=== PATIENT | female | born 1965 | race Caucasian/White ===

== ENCOUNTER 2016-04-30 13:11 | Inpatient (IN) | payer BC ==
--- NOTE | ~2016-04-30 | CN ---
Consultation Report [facility] [address] [place]. [address] NAME: CAPRICE LAKHANI : 65 STATUS : ADM IN PAT#: [id number] AGE: 50 ADM/REG DATE : 04/30/16 MR#: [id number] REPORT SERV DATE: 05/01/16 DICTATED BY: JACOB NAJERA DATE: 05/01/16 REPORT STATUS : Draft TRANSCRIBED BY: MODL DATE: 05/01/16 CONSULTATION NOTE DATE OF CONSULTATION: 05/01/2016 CHIEF COMPLAINT: Dyspnea and cough. HISTORY OF PRESENT ILLNESS: Ms Caprice Lakhani is a 50-year-old white female with a past medical history significant for asthma, chronic bronchitis, CAD, and possible diffuse parenchymal lung disease, who presents to [facility]'s Emergency Room with complaints of worsening shortness of breath and cough of one to two weeks' duration. It should be noted that Ms Lakhani has not been hospitalized recently and has done fairly well as an outpatient. Ms Lakhani is followed in the outpatient clinic by Dr. Karig Arams. She has been seen in the past for her asthma, possible obstructive sleep apnea, and then more recently, over the question of interstitial lung disease. She is on a pulmonary regimen of albuterol and Advair of which she is compliant. The patient describes herself as a never smoker. She states that she has had previous polysomnography that does not demonstrate obstructive sleep apnea. She describes her exercise tolerance recently as being fairly good, being able to ambulate approximately half a block before experiencing any shortness of breath. Ms Lakhani does not provide an entirely clear timeline regarding recent pulmonary events. That being said, it appears that she was treated at [facility] over a year ago for a bilateral pneumonia. She describes being treated with antibiotics at this time. At some point afterwards, she underwent CT imaging of the chest which demonstrated fibrotic changes in the bases of her lungs. She was eventually referred to Dr. Merlos for open lung biopsy. In May of 2015, she did undergo open lung biopsy which demonstrated usual interstitial pneumonia consistent with idiopathic pulmonary fibrosis. Given the findings, she was started on Nintedanib. Unfortunately, she had associated GI intolerance to this medication and it was eventually discontinued. Given her relatively young age and her findings on pathology, she was referred to [place] for further assessment. By the patient's report, the pathology reports were reviewed by the IPF team at [place] and she was told that she more than likely had a chronic bronchitis rather than a fibrotic process. Since that time, the patient has done reasonably well from a pulmonary standpoint. More recently, the patient has had worsening shortness of breath with associated productive cough and as such presented to [facility]'s emergency room. Upon arrival, she was found to be afebrile and normotensive with good oxygen saturation on supplemental oxygen. Initial blood work revealed a white blood cell count of 23,300. Arterial blood gas was obtained, which revealed a pH of 7.46, PaCO2 of 37, PaO2 of 65, and a bicarb of 26.1. Chest x-ray was obtained, which revealed an area of left basilar atelectasis and possible pleural fluid. She did receive some antibiotics and was placed on IV steroids. For the aforementioned reasons, she has been referred to the Pulmonary Service for further assessment. Consultation Report [address] [address] NAME: CAPRICE LAKHANI : 65 STATUS : ADM IN [facility]#: [id number] AGE: 50 ADM/REG DATE : 04/30/16 MR#: [id number] REPORT SERV DATE: 05/01/16 DICTATED BY: JACOB NAJERA DATE: 05/01/16 REPORT STATUS : Draft TRANSCRIBED BY: PEGGY DATE: 05/01/16 Currently, Ms Lakhani it is on 2 L of oxygen with appropriate oxygenation saturations. She does have a dry cough. She has had no recent purulent sputum by her report. She denies any overt wheezing in her chest. She has had no recent episodes of hemoptysis. She does carry a formal diagnosis of asthma. She currently denies any murmurs, angina, or palpitations. She denies any orthopnea or dependent edema. In regard to constitutional symptoms, she currently denies fever, chills, nausea, vomiting, chest pain, abdominal pain, or edema. PAST MEDICAL HISTORY: 1. Possible diffuse parenchymal lung disease. 2. Asthma. 3. Chronic bronchitis. 4. Dyslipidemia. PAST SURGICAL HISTORY: Open lung biopsy. FAMILY HISTORY: The patient denies family history of lung disease. 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 She denies any recent exposures to dust, silica, or asbestos. She has had no new or exotic pets in the home. TOBACCO/ALCOHOL: Again, the patient describes herself as a never smoker. She denies any recent alcohol or illicit drug use. REVIEW OF SYSTEMS: A complete review of systems was performed with pertinent positives and negatives are contained within the body of the HPI. PHYSICAL EXAMINATION: VITAL SIGNS: Blood pressure is 117/59, heart rate is 82, T-max is 98.2, respiratory rate is 17, and SpO2 is 94% on 2 L nasal cannula. GENERAL: The patient is a pleasant, well-nourished/well-developed female who is not currently exhibiting any signs of acute distress. SKIN: Skin with appropriate texture and turgor. No rashes, lesions, or ulcers. Nails are clear without cyanosis or clubbing. HEENT: HEAD: Skull is normocephalic/atraumatic. Facies symmetric. No masses or lesions. EYES: Sclera anicteric, conjunctiva pink without exudates. Extra ocular movements intact. Pupils are equal, round, reactive to light. EARS: Auricles and tragus without pain to palpation. Hearing is grossly intact. NOSE: Bilateral nasal patency. Sinuses without tenderness upon palpation. Consultation Report [address] [place]. [address] NAME: CAPRICE LAKHANI : 65 STATUS : ADM IN [facility]#: [id number] AGE: 50 ADM/REG DATE : 04/30/16 MR#: [id number] REPORT SERV DATE: 05/01/16 DICTATED BY: JACOB NAJERA DATE: 05/01/16 REPORT STATUS : Draft TRANSCRIBED BY: PEGGY DATE: 05/01/16 THROAT: Dentition. Lips, oral mucosa, tongue, palate, and pharynx pink and moist without lesions. Uvula rises equally on phonation. Tongue midline without deviation. NECK: Neck supple. Trachea midline. No cervical lymphadenopathy appreciated. THORAX/LUNGS: Thorax is symmetric with equal chest rise. Breath sounds audible through entire field. No rales, wheezes, rhonchi CARDIOVASCULAR: Regular rate and rhythm. No murmurs, rubs, or gallops. Anterior chest without thrills, heaves, or lifts. ABDOMEN: Soft. Non-distended, non-tender. Active bowel sounds in all four quadrants. No hepatosplenomegaly noted. PERIPHERAL VASCULAR: No edema. No varicosities, stasis changes, open sores, ulcerations, or phlebitis. 2+ pulses in radial and dorsalis pedis. MUSCULOSKELETAL: Full AROM and PROM in all joints. No evidence of erythema, deformity, or crepitus. NEUROLOGIC: CN II - XII grossly intact. Good muscle bulk and tone bilaterally. Strength 5/5 throughout. PSYCHIATRIC: The patient demonstrates good judgment and insight. Pt is A&O x 3. ACCESSORY DATA: Reveals a white blood cell count of 18,100. Procalcitonin is negative 0.36. C-reactive protein is elevated at 114.0. Arterial blood gas on room air reveals pH of 7.46, PaCO2 of 37, PaO2 of 65, bicarb of 26.1. Chest x-ray reveals some fibrotic changes in the bases. CT scan from March of 2016 reveals emphysematous changes in the superior portion of the lungs. There is a regular parenchymal consolidation at the posterior bases. IMPRESSION: 1. Acute hypoxemic respiratory failure. 2. Diffuse parenchymal lung disease of questionable etiology. 3. Chronic bronchitis. 4. History of asthma. PLAN: At this time, we will contact the patient's primary salt manager in an attempt to elucidate the chronicity of the patient's lung disease. We may obtain Vasculitis labs, given the patient's elevated CRP and sedimentation rate. It may be reasonable to obtain additional CT scanning of the chest. We do agree with IV steroids. Ultimately, we will attempt to obtain a level of 1 mg/kg, and follow her for clinical improvement. The aforementioned impression and plan has been discussed with Dr. Gordon, who will follow further recommendations. We thank you for this consult and look forward to participating in the care of Ms Caprice Lakhani. GBS/MODL Consultation Report [address] [place]. [address] NAME: CAPRICE LAKHANI : 65 STATUS : ADM IN [facility]#: [id number] AGE: 50 ADM/REG DATE : 04/30/16 MR#: [id number] REPORT SERV DATE: 05/01/16 DICTATED BY: JACOB NAJERA DATE: 05/01/16 REPORT STATUS : Draft TRANSCRIBED BY: PEGGY DATE: 05/01/16 Jacob Najera PA-C / [id number] CC: Eduin Paul M.D.
--- NOTE | ~2016-04-30 | DS ---
Discharge Summary [facility] [address] [place]. [address] NAME: SUSAN CASTANEDA : 65 STATUS : DIS IN PAT#: [id number] AGE: 50 ADM/REG DATE : 04/30/16 MR#: [id number] REPORT SERV DATE: 05/03/16 DICTATED BY: LEOBARDO CHESTER DATE: 05/02/16 REPORT STATUS : Draft TRANSCRIBED BY: MODMegan DATE: 05/02/16 ADMISSION DATE: 04/30/2016 DISCHARGE DATE: 05/02/2016 REASON FOR ADMISSION: This is a 50-year-old female that came in with shortness of breath, hypoxemia, and cough, failure to improve over 10 days of outpatient therapy. She has a history of interstitial lung disease, biopsy by Dr. Merlos last year, and had gone to [place], where they had told her she had chronic bronchitis and had been taking immunosuppressive agent, Ofev, and it was stopped in December. The patient is followed in the outpatient clinic by Dr. Kraig Armas, and after having a CT scan that had showed fibrotic trying to changes in her lung in May 2015, she had open lung biopsy which demonstrated interstitial pneumonia consistent with idiopathic pulmonary fibrosis and had been started on Nintedanib. She stopped it after having some GI intolerance to it. She went to [place] for further assessment and was reviewed by IPF Team and was told that she more than likely had chronic bronchitis rather than a fibrotic process, and since that time, had been doing reasonably well from a pulmonary standpoint until recently developing worsening shortness of breath associated with productive cough. DISCHARGE DIAGNOSES: 1. Nonspecific interstitial pneumonia. 2. Chronic bronchitis, asthma. 3. Hyperglycemia secondary to steroids. 4. Anxiety and depression. 5. Gastroesophageal reflux disease. 6. Insomnia. HOSPITAL COURSE: 1. Nonspecific interstitial pneumonia. The patient was admitted and started on IV methylprednisone and Pulmonary was consulted. The patient would have a CT scan of the chest which would show bibasilar ground-glass type opacities with relative sparing of peripheral lungs compatible with nonspecific interstitial pneumonia. Dr. Gordon saw the patient today and agreed with this assessment and felt the patient could be discharged to home as her shortness of breath had improved on the IV Solu-Medrol and he would send her home on oral prednisone and to follow up with outpatient with Dr. Kraig Armas with a CD of her CT imaging from here at the hospital. 2. Hyperglycemia secondary to steroids. The patient did have some hyperglycemia associated with steroids, however, blood sugar never got above 161 here at the hospital and that was while on IV steroids. With her A1cs last known to be 6.0, I do not feel that she needs to be on any blood sugar medication at this time, but will have her primary care follow this closely as she will be remaining on oral steroid and it is possible that she might need to start oral metformin in the future. DISCHARGE CONDITION: Stable. DISCHARGE MEDICATIONS: 1. Nexium one capsule daily. Discharge Summary [place] [id number] [facility] [place]. [address] NAME: SUSAN CASTANEDA : 65 STATUS : DIS IN PAT#: [id number] AGE: 50 ADM/REG DATE : 04/30/16 MR#: [id number] REPORT SERV DATE: 05/03/16 DICTATED BY: LEOBARDO CHESTER DATE: 05/02/16 REPORT STATUS : Draft TRANSCRIBED BY: PEGGY DATE: 05/02/16 2. Fluoxetine 20 mg p.o. b.i.d. 3. Buspirone 10 mg p.o. b.i.d. 4. Ambien 10 mg p.o. at bedtime. 5. Zocor 40 mg p.o. at bedtime. 6. Singulair 10 mg p.o. daily. 7. Albuterol 3 mL inhaled q.4 hours p.r.n. 8. Tylenol p.r.n. 9. Vitamin C one tablet p.o. daily. 10.Albuterol MDI two puffs p.r.n. 11.Prednisone 40 mg p.o. daily. DISCHARGE PLAN: The patient is discharged to home. Follow up with primary care in one to two weeks and Dr. Kraig Armas in two weeks and continue prednisone therapy at home. The patient already has home oxygen. She has been requiring 2 L here at the hospital. She although was checked at rest to be 93% on room air, the patient does have portable tanks and home O2 at home that she can use. ENRIQUE/PEGGY Leobardo Chester APN / [id number] CC: Eduin Paul M.D. Hisham F. Qutob, MD Daniel Smith, M.D.
--- NOTE | ~2016-04-30 | HP ---
History And Physical [address] [place]. [address] NAME: SUSAN CASTANEDA : 65 STATUS : ADM IN PAT#: [id number] AGE: 50 ADM/REG DATE : 04/30/16 MR#: [id number] REPORT SERV DATE: 04/30/16 DICTATED BY: DONELL LEWIS DATE: 04/30/16 REPORT STATUS : Draft TRANSCRIBED BY: MODL DATE: 04/30/16 DATE OF ADMISSION: 04/30/2016 EXAMINING PHYSICIAN: Donell Lewis M.D. REASON FOR ADMISSION: Shortness of breath, hypoxemia, and cough with failure to improve over ten days with outpatient therapy. HISTORY OF PRESENT ILLNESS: This is a 50-year-old white female, who has history of asthma. She also has a history of an interstitial lung disease, was biopsied here by Dr. Merlos last year. She went to [place] and they told her it was chronic bronchitis. She had been taking an immunosuppressive agent, Ofev, and it was stopped in December. She was taking 150 mg a day. She had increasing shortness of breath. Chest x-ray was done by Dr. Armas when she saw him about ten days ago. Augmentin was added and tapering dose of prednisone. The patient has failed to improve. She presents to the emergency with increasing shortness of breath and/or relative hypoxemia. Her arterial blood gases that were drawn on 21% FiO2 are 7.46/37/65, but with complaint of shortness of breath. She has a chest x-ray showing evidence of shallow inspiration with minimal left basal atelectasis and possible pleural fluid. She did have a right lung biopsy remotely. PAST MEDICAL HISTORY: She was hospitalized here with right lung biopsy by Dr. Merlos about a year ago. HOME MEDICATIONS: Include the following: Acetaminophen 500 mg p.o. q.6 hours p.r.n., ProAir two puffs every four hours p.r.n., albuterol q.4 hours as needed, Augmentin 875 p.o. b.i.d., Goody's Powder for headache p.r.n., BuSpar 10 mg p.o. b.i.d., fluoxetine 20 mg p.o. b.i.d., Singulair 10 mg p.o. at bedtime, prednisone tapering dose, simvastatin 40 mg p.o. daily, Nexium 40 mg daily, [id number] vitamin C, and Ambien 10 mg p.o. at bedtime scheduled. ALLERGIES: NONE ARE KNOWN. SOCIAL HISTORY: She has been two or three times. She lives in [place] now, does not attend restoration. She has never smoked cigarettes. She does not take any alcohol. She has had no toxic exposure. 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 The patient graduated from [employer]. FAMILY HISTORY: Mother of liver cancer. Father with diabetes. She has an aunt who lives in [place], who sees about her. She has one brother, who smokes cigarettes, has some lung disease from that. REVIEW OF SYSTEMS: She has shortness of breath. No chest pain. No cough, hemoptysis, melena, hematemesis, History And Physical [address] [address] NAME: SUSAN CASTANEDA : 65 STATUS : ADM IN PAT#: [id number] AGE: 50 ADM/REG DATE : 04/30/16 MR#: [id number] REPORT SERV DATE: 04/30/16 DICTATED BY: DONELL LEWIS. DATE: 04/30/16 REPORT STATUS : Draft TRANSCRIBED BY: PEGGY DATE: 04/30/16 nausea, vomiting, diarrhea, unilateral weakness, fits, seizures, or convulsions. She has had no exertional chest pain. She does have dyspnea with exertion. She has had no weight loss. No swelling in lower extremities, melena, hematemesis, nausea, vomiting, or diarrhea. She believes that she had cystic fibrosis, though after talking to her, probably was diagnosed as idiopathic pulmonary fibrosis. She does state that her shortness of breath did get better when she was taking the Ofev. The remainder of the review of systems is negative. PHYSICAL EXAMINATION: VITAL SIGNS: Her blood pressure is 130/70 with a heart rate of 80, respiratory rate is 16, afebrile. HEENT: EOMI. Sclerae clear. Conjunctivae pink. Pharynx clear. NECK: No bruit without any JVD. CHEST: Few rales on the right side without dullness to percussion. HEART: Regular S1, S2 without murmur, gallop, or click. ABDOMEN: Soft, nontender. Bowel sounds positive. No HSM. EXTREMITIES: Have no edema. Distal pulses are intact in the dorsalis pedis, posterior tibial. NEUROLOGIC: Electrician'S Helper equal and symmetric bilaterally. Coordination intact. She has no tremor. She is symmetric and equal neurologically bilaterally. Strength is symmetric and equal. Sensory is intact. SKIN: Without rash, ecchymosis, or bruising. LYMPHATICS: There is no adenopathy. AND PELVIC: Examination was deferred. LABORATORY DATA: The chest x-ray was negative. The arterial blood gas as outlined above. CMP: Sodium 137, potassium 4.1, chloride 102, BUN 16, creatinine 0.74, glucose 125, total protein 9.3, albumin 3.3. The A/G ratio was 0.7, globulin level slightly high, but the liver tests were normal. The flu screen was negative for A and B, and CBC showed a white count of 23,000, hemoglobin 13, hematocrit 39.2, and platelets were 347,000. ASSESSMENT: 1. History of interstitial lung disease. Failure of IV antibiotics and steroids to improve with increasing shortness of breath. I suspect there is some interstitial inflammatory response going on. We will check sedimentation rate and CRP. Also check a procalcitonin. 2. Leukocytosis, probably on the basis of the prednisone given to her by Dr. Armas previously. We will repeat the CBC in the morning. 3. Depression and anxiety, on medication. 4. Failed outpatient therapy of ten days' duration. 5. History of asthma. PLAN: Admit her to the hospital. Have Pulmonary consult. The records from Dr. Armas will be requested. Check procalcitonin looking for supportive evidence of infection and repeat History And Physical [address] [address] NAME: SUSAN CASTANEDA : 65 STATUS : ADM IN [facility]#: [id number] AGE: 50 ADM/REG DATE : 04/30/16 MR#: [id number] REPORT SERV DATE: 04/30/16 DICTATED BY: DONELL LEWIS DATE: 04/30/16 REPORT STATUS : Draft TRANSCRIBED BY: MODL DATE: 04/30/16 the CBC looking at the leukocytosis, though I suspect this is a leukemoid reaction from the use of the IV Solu-Medrol and the oral prednisone previously. DB/MODL Donell Lewis M.D. / [id number] CC: Eduin Paul M.D. Bruce Johnson, M.D. Daniel Smith, M.D.
[2016-04-30 11:56] LABS: ALLENS TEST Pos; BE (BASE EXCESS) 2.4 MEQ/L (0 +/- 2.5); CARBOXYHEMOGLOBIN 1.5 % (0-3); HCO3 (ACTUAL BICARBONATE) 26.1 MEQ/L (23-27); HEMOBLOGIN CONTENT 13.7 G/DL (12-16); INSTRUMENT SERIAL # 8087; METHEMOGLOBIN 0.4 % (0-3); O2 CONTENT 17.7 VOL% (18-24); PCO2 (CO2 TENSION) 37 MMHG (35-45); PO2 (O2 TENSION) 65 MMHG (79-93); SAMPLE Arterial; pH 7.46 (7.37-7.43)
[2016-04-30 12:46] LABS: BASOPHILS 0.1 %; BASOPHILS ABSOLUTE 0.02 10/3/uL (0.0-0.16); EOSINOPHILS 0.2 %; EOSINOPHILS ABSOLUTE 0.04 10/3/uL (0.0-0.53); ER CBC TAT 0 Hrs 11 Mins; HEMATOCRIT 39.2 % (36.0-48.0); IMMATURE GRANULOCYTES 0.6 %; LYMPHOCYTES ABSOLUTE 1.16 10/3/uL (0.67-4.30); MEAN CORPUS HGB CONC 33.2 g/dL (32.0-36.0); MEAN CORPUSCULAR HEMOGLOB 30.2 pg (26.0-34.0); MEAN PLATELET VOLUME 9.5 fL (9.2-13.0); MONOCYTES 2.1 %; MONOCYTES ABSOLUTE 0.48 10/3/uL (0.21-1.20); NEUTROPHILS ABSOLUTE 21.45 10/3/uL (2.02-8.40); RBC DISTRIBUTION WIDTH 12.9 % (12.0-16.0); RED CELL COUNT 4.31 10/6/uL (4.0-5.6); WHITE BLOOD CELLS 23.3 10/3/uL (4.5-10.5)
[2016-04-30 12:47] LABS: IMMATURE GRANULOCYTES ABSOLUTE 0.13 10/3/uL (0.0-0.11); MANUAL DIFF NO %; PLATELET COUNT 347 10/3/uL (150-400)
[2016-04-30 12:57] LABS: A/G RATIO 0.7 (0.7-1.9); ALBUMIN 3.3 G/DL (3.5-5.0); ALKALINE PHOSPHATASE 92 U/L (45-117); CALCIUM, SERUM 9.3 MG/DL (8.5-10.4); CHLORIDE, SERUM 102 MMOL/L (96-112); CO2 (CARBON DIOXIDE) 29 MMOL/L (24-34); CREATININE 0.74 MG/DL (0.55-1.02); GFR AFRICAN AMERICAN 109 ML/MIN (>=60); GFR NON AFRICAN AMERICAN 94 ML/MIN (>=60); GLOBULIN 4.8 G/DL (2.5-4.1); GLUCOSE, SERUM 125 MG/DL (60-99); SGOT(AST) 18 U/L (5-40); SGPT(ALT) 25 U/L (5-65); SODIUM, SERUM 137 MMOL/L (135-148); TOTAL BILIRUBIN 0.3 MG/DL (0-1.2); TOTAL PROTEIN 8.1 G/DL (6.0-8.5)
[2016-04-30 12:58] LABS: BUN (BLOOD UREA NITROGEN) 16 MG/DL (6-23); POTASSIUM, SERUM 4.1 MMOL/L (3.5-5.3)
[2016-04-30 13:05] LABS: INFLUENZA A SCREEN NEGATIVE (NEGATIVE); INFLUENZA B SCREEN NEGATIVE (NEGATIVE)
[2016-04-30 13:08] LABS: ER DIFF TAT 0 Hrs 33 Mins; LYMPHOCYTES 8 %; LYMPHOCYTES ABSOLUTE (CALC) 1.86 10/3/uL (0.67-4.30); MONOCYTES 3 %; NEUTROPHILS ABSOLUTE (CALC) 20.74 10/3/uL (2.02-8.40); PLATELET ESTIMATE ADQ (ADEQUATE); SEGMENTED NEUTROPHIL (0) 89 %; TOTAL NUCLEATED CELLS 100
[2016-04-30 13:09] LABS: RBC MORPHOLOGY NORM (NORMAL)
[~2016-04-30 13:11] MED LIST: ALLEGRA-D12 HOUR PO; AMB5 PO; ATROVENTUD INH; BUSPAR5 PO; CHERATUSSIN PO; DAYQUIL PO; FLONASE NAS; GOODY'S EX PO; M-END MAX D LI473 ML PO; NASONEX NAS; PCET PO; PRILO PO; PROTONIX PO; PROVHFA INH; PROZ10 PO; SINGULAIR1 PO; ZOCOR20 PO
[2016-04-30] MEDS ORDERED: PROZAC PO (13:50)
[2016-04-30] MEDS ORDERED: NEXIUM PO (13:50)
[2016-04-30] MEDS ORDERED: BUSPAR10 PO (13:51)
[2016-04-30] MEDS ORDERED: AMB10 PO (13:52)
[2016-04-30] MEDS ORDERED: ZOCOR40 PO (13:53)
[2016-04-30] MEDS ORDERED: SINGULAIR1 PO (13:53)
[2016-04-30] MEDS ORDERED: ALBUTEROL0.083 % INH (13:53)
[2016-04-30] MEDS ORDERED: OTC VITAMIN C PO (13:54)
[2016-04-30] MEDS ORDERED: GOODY'S EX-STR1 EAC1 PO (13:54)
[2016-04-30] MEDS ORDERED: ACET500CAP PO (13:54)
[2016-04-30] MEDS ORDERED: PROAIR HFA INH (13:55)
[2016-04-30] MEDS ORDERED: AUG875 PO (13:56)
[2016-04-30] MEDS ORDERED: P10 PO (14:03)
[2016-04-30 20:04] LABS: PROCALCITONIN 0.36 ng/mL (<0.5)
[2016-05-01 04:56] LABS: BUN (BLOOD UREA NITROGEN) 15 MG/DL (6-23); CALCIUM, SERUM 9.2 MG/DL (8.5-10.4); CHLORIDE, SERUM 100 MMOL/L (96-112); CO2 (CARBON DIOXIDE) 26 MMOL/L (24-34); CREATININE 0.65 MG/DL (0.55-1.02); GFR AFRICAN AMERICAN 120 ML/MIN (>=60); GFR NON AFRICAN AMERICAN 104 ML/MIN (>=60); GLUCOSE, SERUM 127 MG/DL (60-99); POTASSIUM, SERUM 3.8 MMOL/L (3.5-5.3); SODIUM, SERUM 137 MMOL/L (135-148)
[2016-05-01 05:16] LABS: BASOPHILS 0.1 %; BASOPHILS ABSOLUTE 0.01 10/3/uL (0.0-0.16); EOSINOPHILS 0 %; HEMATOCRIT 37.9 % (36.0-48.0); HEMOGLOBIN 12.5 g/dL (12.0-16.0); IMMATURE GRANULOCYTES 0.7 %; IMMATURE GRANULOCYTES ABSOLUTE 0.13 10/3/uL (0.0-0.11); LYMPHOCYTES 5.8 %; LYMPHOCYTES ABSOLUTE 1.04 10/3/uL (0.67-4.30); MEAN CORPUSCULAR HEMOGLOB 30.3 pg (26.0-34.0); MEAN CORPUSCULAR VOLUME 91.8 fL (80-100); MEAN PLATELET VOLUME 9.9 fL (9.2-13.0); MONOCYTES 1.1 %; MONOCYTES ABSOLUTE 0.19 10/3/uL (0.21-1.20); NEUTROPHILS 92.3 %; NEUTROPHILS ABSOLUTE 16.71 10/3/uL (2.02-8.40); PLATELET COUNT 358 10/3/uL (150-400); RBC DISTRIBUTION WIDTH 12.7 % (12.0-16.0); RED CELL COUNT 4.13 10/6/uL (4.0-5.6); WHITE BLOOD CELLS 18.1 10/3/uL (4.5-10.5)
[2016-05-01 05:28] LABS: MANUAL DIFF NO %
[2016-05-02 08:14] LABS: CALCIUM, SERUM 8.3 MG/DL (8.5-10.4); CHLORIDE, SERUM 108 MMOL/L (96-112); CO2 (CARBON DIOXIDE) 28 MMOL/L (24-34); CREATININE 0.63 MG/DL (0.55-1.02); GFR AFRICAN AMERICAN 121 ML/MIN (>=60); GFR NON AFRICAN AMERICAN 105 ML/MIN (>=60); POTASSIUM, SERUM 3.8 MMOL/L (3.5-5.3); SODIUM, SERUM 143 MMOL/L (135-148)
[2016-05-02 08:18] LABS: BUN (BLOOD UREA NITROGEN) 24 MG/DL (6-23); GLUCOSE, SERUM 95 MG/DL (60-99)
[2016-05-04 10:56] LABS: ANA TITER <1:40 TITER
[2016-05-05 15:30] LABS: IMMUNOGLOBULIN E 71.5 kU/L (0.0-158.0)
[2016-09-28] MEDS ORDERED: ANOROELLIPTA INH (10:42)
[2016-09-28] MEDS ORDERED: BREO ELLIPTA INH (11:05)
[2016-09-28] MEDS ORDERED: ARNUITY ELLIP200 MCG INH (11:11)
[2016-09-28] MEDS ORDERED: FLONASE NAS (11:12)
[2016-09-28] MEDS ORDERED: ASTELIN NAS (11:13)
[2016-09-28] MEDS ORDERED: IPRATROPIUM INH (11:21)
[2016-09-28] MEDS ORDERED: [UNRECOGNIZED DRUG - OTHER] SC (11:22)
[2016-09-28] MEDS ORDERED: PREV15 PO (11:22)
[2016-09-28] MEDS ORDERED: EPIPEN0.3 IM (11:23)
[2016-09-28] MEDS ORDERED: ALLEGRA OTC (11:32)
== END 2016-05-02 18:01 | disposition home or self-care (01) | DRG 196 ==
LOC: ER 13:11 → 4SO 15:58
PROVIDERS: Emergency Medicine; Internal Medicine; Physician Assistant Medical
DX: J84.9 Interstitial pulmonary disease, unspecified (principal); J96.01 Acute respiratory failure with hypoxia; Z99.81 Dependence on supplemental oxygen; E09.9 Drug or chemical induced diabetes mellitus without complications; T38.0X5A Adverse effect of glucocorticoids and synthetic analogues, initial encounter; Y92.239 Unspecified place in hospital as the place of occurrence of the external cause; F41.9 Anxiety disorder, unspecified; F32.9 Major depressive disorder, single episode, unspecified; G47.00 Insomnia, unspecified; J44.9 Chronic obstructive pulmonary disease, unspecified; K21.9 Gastro-esophageal reflux disease without esophagitis
CPT/HCPCS: 36600; 71010; 71250; 80048; 80053; 82164; 82785; 82805; 82962; 84145; 85025; 85652; 86039; 86140; 87040; 87070; 87205; 87804; 93005; 94640; 96374; 99291; A9270-GY; J1956; J2930